=== PATIENT | female | born 2000 | race Caucasian/White ===

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

== ENCOUNTER → 2019-10-26 | Outpatient (CLI) | payer OTHER | LOC: LAB 10:57 | DX: Z01.419 Encounter for gynecological examination (general) (routine) without abnormal findings (principal); Z20.2 Contact with and (suspected) exposure to infections with a predominantly sexual mode of transmission; Z13.29 Encounter for screening for other suspected endocrine disorder; Z13.220 Encounter for screening for lipoid disorders; Z83.3 Family history of diabetes mellitus; N89.8 Other specified noninflammatory disorders of vagina; E28.2 Polycystic ovarian syndrome; R01.1 Cardiac murmur, unspecified ==

== ENCOUNTER → 2019-11-06 | Outpatient (CLI) | payer OTHER ==
[2019-11-06 10:04] LABS: EOS # 0.1 (0.04-0.40); EOS % 1.2 % (0.1-4.0); HEMATOCRIT 46.6 % (35.0-45.0); HEMOGLOBIN 15.5 g/dL (12.0-15.0); MEAN CELL VOLUME 89 fl (78-95); MEAN CORPUSCULAR HEMOGLOBIN 30 pg (26-32); MEAN CORPUSCULAR HGB CONC 33 g/dL (33-37); MEAN PLATELET VOLUME 10.1 fl (7.4-10.4); MONO # 0.7 (0.10-0.60); NEU # 5.9 (1.40-6.50); PLATELET COUNT 265 K/mm3 (130-400); RED BLOOD COUNT 5.25 M/mm3 (4.10-5.30); RED CELL DISTRIBUTION WIDTH 12.7 % (11.5-14.5); WHITE BLOOD COUNT 8.7 K/mm3 (4.8-10.8)
[2019-11-06 10:11] LABS: POTASSIUM 3.6 mmol/L (3.5-5.1)
[2019-11-06 10:12] LABS: ALBUMIN 4.5 g/dL (3.5-5.0)
[2019-11-06 10:13] LABS: CALCIUM 9.3 mg/dL (8.3-10.5)
[2019-11-06 10:14] LABS: TOTAL PROTEIN 7.2 g/dL (6.4-8.3)
[2019-11-06 10:16] LABS: TOTAL BILIRUBIN 0.7 mg/dL (0.2-1.2)
[2019-11-07 14:09] LABS: SYPHILIS AB SCREEN w REFLEX Negative (Negative)
== END ==
LOC: LAB 09:45
PROVIDERS: Physician Assistant
DX: Z01.419 Encounter for gynecological examination (general) (routine) without abnormal findings (principal); Z20.2 Contact with and (suspected) exposure to infections with a predominantly sexual mode of transmission; Z13.29 Encounter for screening for other suspected endocrine disorder; Z13.220 Encounter for screening for lipoid disorders; N89.8 Other specified noninflammatory disorders of vagina; E28.2 Polycystic ovarian syndrome; R01.1 Cardiac murmur, unspecified; Z83.3 Family history of diabetes mellitus

== ENCOUNTER → 2020-02-29 | Outpatient (CLI) | payer OTHER ==
[2020-03-01 23:26] LABS: SYPHILIS AB SCREEN w REFLEX Negative (Negative)
[2020-03-05 02:50] LABS: AFFIRM VAGINITIS PANEL RESULTS AMS
[2020-03-14 12:08] LABS: HERPES SIMPLEX VIRUS MOLECULAR AMS
== END ==
LOC: LAB 15:54
PROVIDERS: Physician Assistant
DX: Z20.2 Contact with and (suspected) exposure to infections with a predominantly sexual mode of transmission (principal)

== ENCOUNTER → 2021-04-18 | Outpatient (CLI) | payer OTHER ==
[2021-04-18 12:05] LABS: POTASSIUM 3.3 mmol/L (3.5-5.1)
[2021-04-18 12:07] LABS: CALCIUM 9.7 mg/dL (8.3-10.5)
[2021-04-18 12:42] LABS: HEMOGLOBIN 15.1 g/dL (12.5-16.0); MEAN PLATELET VOLUME 9.7 fl (7.4-10.4); RED BLOOD COUNT 5.04 M/mm3 (4.10-5.30); RED CELL DISTRIBUTION WIDTH 12.3 % (11.5-14.5); WHITE BLOOD COUNT 8.7 K/mm3 (4.8-10.8)
== END ==
LOC: LAB 11:39
DX: F43.10 Post-traumatic stress disorder, unspecified (principal)

== ENCOUNTER → 2024-03-09 | Outpatient (CLI) | payer BC ==
[~2024-03-09] MED LIST changes: +DESYREL 100MG100 MG PO; +LAMOTRIGINE150 MG PO
[2024-03-09 09:40] LABS: HEMATOCRIT 44.5 % (37.0-47.0); HEMOGLOBIN 14.2 g/dL (12.5-16.0); MEAN PLATELET VOLUME 10.1 fl (7.4-10.4); RED BLOOD COUNT 4.72 M/mm3 (4.10-5.30); RED CELL DISTRIBUTION WIDTH 11.8 % (11.5-14.5); WHITE BLOOD COUNT 6.7 K/mm3 (4.8-10.8)
[2024-03-09 09:44] LABS: ALBUMIN 4.3 g/dL (3.5-5.0); CALCIUM 9.2 mg/dL (8.3-10.5)
[2024-03-09 09:46] LABS: TOTAL PROTEIN 7.1 g/dL (6.4-8.3)
[2024-03-09 09:47] LABS: TOTAL BILIRUBIN 0.3 mg/dL (0.2-1.2)
[2024-03-09 22:36] LABS: FOLLICLE STIMULATING HORMONE 7.2 mIU/mL (()); LUTENIZING HORMONE 12.1 mIU/mL (()); PROGESTERONE 0.2 ng/mL (()); PROLACTIN AMS 12.3 ng/mL (5.2-26.5)
== END ==
LOC: LAB 09:09
PROVIDERS: Physician Assistant
DX: Z13.220 Encounter for screening for lipoid disorders (principal); E28.2 Polycystic ovarian syndrome; K90.9 Intestinal malabsorption, unspecified; N89.8 Other specified noninflammatory disorders of vagina